=== PATIENT | female | born 1990 | race Caucasian/White ===

== ENCOUNTER 2020-07-15 13:21 | Emergency (ER) | payer OTHER ==
[~2020-07-15] VITALS: Ht 170.2 cm; Wt 81.7 kg
[2020-07-15] MEDS ORDERED: ONDANSETRON ODT8 MG PO (14:00)
[2020-07-15] MEDS ORDERED: NORCO 7.5-3251 EACH PO (14:00)
== END 2020-07-15 15:29 | disposition home or self-care (01) ==
LOC: ED 13:21
DX: S43.005A Unspecified dislocation of left shoulder joint, initial encounter (principal); W10.9XXA Fall (on) (from) unspecified stairs and steps, initial encounter
CPT/HCPCS: 23650; 73020; 73030; 99283-25; J1170; J2405; J2704